=== PATIENT | female | born 1955 | race Caucasian/White ===

== ENCOUNTER 2021-12-09 14:01 | Outpatient (CLI) | payer MEDICARE, OTHER | END 2021-12-09 14:02 | disposition home or self-care (01) | LOC: CSHMRI 14:01 | PROVIDERS: ATTEND Neurological Surgery | DX: M48.061 Spinal stenosis, lumbar region without neurogenic claudication (principal); M54.2 Cervicalgia; M47.812 Spondylosis without myelopathy or radiculopathy, cervical region; Z98.890 Other specified postprocedural states; N94.89 Other specified conditions associated with female genital organs and menstrual cycle; M47.816 Spondylosis without myelopathy or radiculopathy, lumbar region | CPT/HCPCS: 72050; 72141; 72148 ==